=== PATIENT | male | born 1965 | race African-American/Black ===

== ENCOUNTER 2023-06-11 06:47 | Inpatient (IN) | payer BC ==
[~2023-06-11] VITALS: Ht 170.2 cm; Wt 57.8 kg
[~2023-06-11 06:47] MED LIST: CEFAZOLIN SOD 2 GM in D5W 50 ML IV ONE; VANCOMYCIN HCL 1,000 MG in NS 250 ML IV ONE
[2023-06-11 08:27] LABS: BASOPHILS % (AUTO) 0.1 % (0.0-2.0); EOSINOPHILS # (AUTO) 0.1 K/uL (0.0-0.4); EOSINOPHILS % (AUTO) 0.8 % (0.0-4.0); HEMATOCRIT 25.6 % (36-54); HEMOGLOBIN 7.9 g/dL (14.0-18.0); LYMPHOCYTES # (AUTO) 1.6 K/uL (1.0-5.5); LYMPHOCYTES % (AUTO) 14.9 % (20.5-51.5); MEAN CORPUSCULAR HEMOGLOBIN 22 pg (27-31); MEAN CORPUSCULAR HGB CONC 31 % (32-36); MEAN CORPUSCULAR VOLUME 71 fL (79.0-98.0); MONOCYTES # (AUTO) 1.1 K/uL (0.0-1.0); MONOCYTES % (AUTO) 10.5 % (1.7-9.3); NEUTROPHILS # (AUTO) 7.9 K/uL (1.8-7.7); NEUTROPHILS % (AUTO) 73.7 % (40.0-70.0); PLATELET COUNT (AUTO) 267 K/uL (130-430); RED BLOOD CELL COUNT(AUTO) 3.58 MIL/uL (4.2-6.2); RED CELL DISTRIBUTION WIDTH 21.2 % (9.0-15.0); WHITE BLOOD COUNT (AUTO) 10.7 K/uL (4.8-10.8)
[2023-06-11 11:22] VITALS: BP_SYST 158; PULSE 74; RESP 18; TEMP 97.7; O2SAT 99
== END 2023-06-11 10:55 | disposition home or self-care (01) | DRG 554 ==
LOC: SMU 06:47
PROVIDERS: ADMIT Orthopaedic Surgery Sports Medicine; ATTEND Orthopaedic Surgery Sports Medicine
DX: M19.011 Primary osteoarthritis, right shoulder (principal); E11.9 Type 2 diabetes mellitus without complications; J44.9 Chronic obstructive pulmonary disease, unspecified; I10 Essential (primary) hypertension; J45.909 Unspecified asthma, uncomplicated; E78.5 Hyperlipidemia, unspecified; Z79.899 Other long term (current) drug therapy
CPT/HCPCS: 36415; 82948; 85025; 86886; 86900; 86901; 87081; J0690; J3370; J7050; J7060

== ENCOUNTER 2023-11-28 10:15 | Outpatient (CLI) | payer BC | END 2023-11-28 14:25 | disposition home or self-care (01) | LOC: SLB 10:15 → EDSTATUS 12-03 10:15 | PROVIDERS: ATTEND Orthopaedic Surgery Sports Medicine | DX: M19.012 Primary osteoarthritis, left shoulder (principal) | CPT/HCPCS: 87081 ==

== ENCOUNTER 2024-02-11 10:31 | Day surgery (SDC) | payer BC ==
[~2024-02-11] VITALS: Ht 170.2 cm; Wt 61.7 kg
[2024-02-11] MEDS ORDERED: HYDROmorphone 1 MG/ML INJ. CARTRIDGE IVP PRN ×4 (11:00→17:00)
[2024-02-11] MEDS ORDERED: oxyCODONE HCL 5 MG TABLET PO PRN (11:00)
[2024-02-11] MEDS ORDERED: ACETAMINOPHEN 500 MG TABLET ONE (11:00)
[2024-02-11] MEDS ORDERED: traMADol HCL HCL 50 MG TABLET (ULTRAM) PO PRN (11:00)
[2024-02-11] MEDS ORDERED: CELECOXIB 100 MG CAPSULE ONE (11:00)
[2024-02-11] MEDS: ACETAMINOPHEN 500 MG TABLET PO ONE (11:45)
[2024-02-11] MEDS: CELECOXIB 100 MG CAPSULE PO ONE (11:45)
[2024-02-11] MEDS ORDERED: ONDANSETRON HCL 4 MG/2 ML VIAL IVP PRN ×2 (11:45→17:00)
[2024-02-11] MEDS ORDERED: CEFAZOLIN SOD 2 GM in D5W 50 ML IV ONE (12:00)
[2024-02-11 13:45] LABS: BASOPHILS % (AUTO) 0.2 % (0.0-2.0); EOSINOPHILS # (AUTO) 0.3 K/uL (0.0-0.4); EOSINOPHILS % (AUTO) 4.9 % (0.0-4.0); HEMATOCRIT 33.9 % (36-54); HEMOGLOBIN 11.2 g/dL (14.0-18.0); LYMPHOCYTES # (AUTO) 2.3 K/uL (1.0-5.5); LYMPHOCYTES % (AUTO) 33.6 % (20.5-51.5); MEAN CORPUSCULAR HEMOGLOBIN 31 pg (27-31); MEAN CORPUSCULAR HGB CONC 33 % (32-36); MEAN CORPUSCULAR VOLUME 93 fL (79.0-98.0); MONOCYTES # (AUTO) 0.7 K/uL (0.0-1.0); MONOCYTES % (AUTO) 10.1 % (1.7-9.3); NEUTROPHILS # (AUTO) 3.5 K/uL (1.8-7.7); NEUTROPHILS % (AUTO) 51.2 % (40.0-70.0); PLATELET COUNT (AUTO) 232 K/uL (130-430); RED BLOOD CELL COUNT(AUTO) 3.66 MIL/uL (4.2-6.2); RED CELL DISTRIBUTION WIDTH 13.6 % (9.0-15.0); WHITE BLOOD COUNT (AUTO) 6.8 K/uL (4.8-10.8)
[2024-02-11 13:58] LABS: PROTHROMBIN TIME 10.4 SECS (9.5-12.5)
[2024-02-11 13:59] LABS: ALBUMIN 3.2 g/dL (3.4-4.8); CREATININE 0.72 mg/dL (0.55-1.30); POTASSIUM 3.3 mmol/L (3.5-5.1); TOTAL BILIRUBIN 0.4 mg/dL (0.0-1.0); TOTAL PROTEIN, SERUM 5.6 g/dL (6.4-8.3)
[2024-02-11] MEDS: VANCOMYCIN HCL 1,000 MG in NS 250 ML IV ONE (14:20)
[2024-02-11] MEDS ORDERED: fentaNYL CITRATE/PF 100 MCG/2 ML AMP ONE (14:42)
[2024-02-11] MEDS ORDERED: MIDAZOLAM HCL 2 MG/2 ML VIAL (VERSED) ONE (14:42)
[2024-02-11] MEDS ORDERED: ACETAMINOPHEN I.V. 1000 MG 100 ML IV ONE (14:42)
[2024-02-11] MEDS ORDERED: HYDROmorphone 2 MG/ML VIAL ONE (14:43)
[2024-02-11] MEDS ORDERED: LR 1,000 ML IV.SOLN IV ONE (14:51)
[2024-02-11] MEDS ORDERED: NS IRRIG SOLN 1000 ML IR ONE (14:51)
[2024-02-11] MEDS ORDERED: VANCOMYCIN HCL 1000 MG/VIAL IV ONE (14:51)
[2024-02-11] MEDS ORDERED: PROPOFOL 200MG/ 20ML VIAL (DIPRIVAN) IV ONE (14:51)
[2024-02-11] MEDS ORDERED: LIDOCAINE 1% 10 MG/ML, 20 ML MDV ONE (14:51)
[2024-02-11] MEDS ORDERED: ONDANSETRON HCL 4 MG/2 ML VIAL ONE (14:51)
[2024-02-11] MEDS ORDERED: TRANEXAMIC ACID 1,000 MG/10 ML VIAL ONE (14:51)
[2024-02-11] MEDS ORDERED: BUPIVACAINE /EPINEPHRINE/PF 0.25% 30 ML VIAL ONE (14:51)
[2024-02-11] MEDS ORDERED: ROPIVACAINE HCL/PF 5 MG/ML 0.5% 30 ML VIAL ONE (14:51)
[2024-02-11] MEDS ORDERED: DEXAMETHASONE SOD PHOSPHATE 4 MG/ML VIAL ONE (14:51)
[2024-02-11] MEDS ORDERED: ROCURONIUM BROMIDE 10 MG/ML (ZEMURON) ONE (14:51)
[2024-02-11] MEDS ORDERED: SEVOFLURANE 15 MIN GAS INH ONE (14:51)
[2024-02-11] MEDS ORDERED: NS IRRIG SOLN 5000 ML IR ONE (14:51)
[2024-02-11] MEDS ORDERED: SUCR1TAB2 PO (15:20)
[2024-02-11] MEDS ORDERED: SPIR25TA PO (15:20)
[2024-02-11] MEDS ORDERED: FERR236T3 PO (15:20)
[2024-02-11] MEDS ORDERED: HYDR2TAB4 PO (15:20)
[2024-02-11] MEDS ORDERED: TAMS-11 PO (15:20)
[2024-02-11] MEDS ORDERED: ACET325C6 PO (15:20)
[2024-02-11] MEDS ORDERED: POTA-197 PO (15:20)
[2024-02-11] MEDS ORDERED: TIZA4CAP6 PO (15:20)
[2024-02-11] MEDS ORDERED: LOSA-413 PO (15:20)
[2024-02-11] MEDS ORDERED: FURO-150 PO (15:20)
[2024-02-11] MEDS ORDERED: PANT20TA2 PO (15:20)
[2024-02-11] MEDS ORDERED: FLUT100B INH (15:20)
[2024-02-11] MEDS ORDERED: BUME1TAB31 PO (15:20)
[2024-02-11] MEDS ORDERED: NOR10 PO (15:20)
[2024-02-11] MEDS ORDERED: ATOR-449 PO (15:20)
[2024-02-11] MEDS ORDERED: ALBMDI INH (15:20)
[2024-02-11] MEDS ORDERED: METF-1069 PO (15:20)
[2024-02-11] MEDS ORDERED: ONDA-8 PO (15:20)
[2024-02-11] MEDS ORDERED: hydrALAZINE HCL 20 MG/ML VIAL IV PRN (17:00)
[2024-02-11] MEDS ORDERED: NALOXONE HCL 0.4 MG/ML AMP (NARCAN) IVP PRN (17:00)
[2024-02-11] MEDS ORDERED: METOCLOPRAMIDE HCL 10 MG/2 ML VIAL IVP PRN (17:45)
[2024-02-11] MEDS ORDERED: ALBUTEROL MDI INHALATION 8 GM INH INH SCH (17:45)
[2024-02-11] MEDS ORDERED: ONDANSETRON 4 MG ODT TAB PO PRN (17:45)
[2024-02-11] MEDS ORDERED: DIPHENHYDRAMINE HCL 25 MG CAPSULE PO PRN (17:45)
[2024-02-11] MEDS: HYDROmorphone 1 MG/ML INJ. CARTRIDGE IVP PRN ×2 (18:30→21:19)
[2024-02-11] MEDS: LABETALOL HCL 20 MG/4 ML CARTRIDGE IVP ONE (18:36)
[2024-02-11] MEDS ORDERED: LABETALOL HCL 20 MG/4 ML CARTRIDGE IVP ONE (18:45)
[2024-02-11] MEDS: SENNOSIDES/DOCUSATE SODIUM 1 TAB TABLET(SENOKOT-S) PO SCH (21:00)
[2024-02-11] MEDS: ACETAMINOPHEN 500 MG TABLET PO SCH (21:20)
[2024-02-11 21:22] VITALS: BP_SYST 134; PULSE 99; RESP 18; TEMP 98.1
[2024-02-11] MEDS ORDERED: ALBUTEROL SULFATE 0.083% 2.5 MG/3 ML VIAL.NEB INH PRN (22:00)
[2024-02-11] MEDS ORDERED: ceFAZolin SODIUM 2 GM in D5W 50 ML IV SCH (22:00)
[2024-02-11 23:10] VITALS: BP_SYST 137; PULSE 88; RESP 18; TEMP 98.2; O2SAT 96
[2024-02-11 23:19] VITALS: BP_SYST 144; PULSE 92; O2SAT 99
[2024-02-12] MEDS: ceFAZolin SODIUM 2 GM in D5W 50 ML IV SCH (01:40)
[2024-02-12] MEDS: CEFAZOLIN 2 GM IVPB PREMIX 50 ML IV ONE (01:41)
[2024-02-12] MEDS: oxyCODONE HCL 5 MG TABLET PO PRN (03:48)
[2024-02-12 08:00] VITALS: BP_SYST 155; BP_SYST 162; PULSE 100; PULSE 84; RESP 16; RESP 18; TEMP 97.7; TEMP 98.2; O2SAT 96; O2SAT 99
[2024-02-12 08:19] LABS: HEMATOCRIT 33.7 % (36-54); HEMOGLOBIN 11.2 g/dL (14.0-18.0)
[2024-02-12] MEDS ORDERED: FLUTICASONE FUROATE 100 MCG BLST.W.DEV INH SCH (09:00)
[2024-02-12] MEDS: BUMETANIDE 1 MG TABLET PO SCH (09:15)
[2024-02-12] MEDS: FUROSEMIDE 20 MG TABLET PO SCH (09:16)
[2024-02-12] MEDS: TAMSULOSIN HCL 0.4 MG CAP PO SCH (09:17)
[2024-02-12] MEDS: SPIRONOLACTONE 25 MG TABLET (ALDACTONE) PO SCH (09:17)
[2024-02-12] MEDS: PANTOPRAZOLE SODIUM 40 MG TAB PO SCH (09:17)
[2024-02-12] MEDS: ATORVASTATIN 10 MG TABLET PO SCH (09:17)
[2024-02-12] MEDS: LOSARTAN POTASSIUM 50 MG TABLET (COZAAR) PO SCH (09:17)
[2024-02-12] MEDS: SUCRALFATE 1 GM TABLET PO SCH (09:18)
[2024-02-12] MEDS: amLODIPine BESYLATE 10 MG TABLET PO SCH (09:19)
[2024-02-12] MEDS: POTASSIUM CHLORIDE 20 MEQ TABLET.ER PO SCH (09:19)
[2024-02-12] MEDS: HYDROmorphone 1 MG/ML INJ. CARTRIDGE ONE (09:21)
[2024-02-12 10:15] VITALS: O2SAT 97
[2024-02-12] MEDS: BUDESONIDE 0.5 MG/2 ML AMPUL.NEB INH SCH (10:29)
[2024-02-12 12:52] VITALS: BP_SYST 155; PULSE 100; RESP 20; TEMP 98.2; O2SAT 96
[2024-02-12 13:07] VITALS: BP_SYST 155; PULSE 100; RESP 20; TEMP 98.2; O2SAT 96
== END 2024-02-12 13:30 | disposition home or self-care (01) ==
LOC: SMU 10:31 → SDS 10:31 → STU 19:19 → SMU 02-12 12:55 → SDS 02-12 13:30
PROVIDERS: ATTEND Orthopaedic Surgery Sports Medicine
DX: M19.012 Primary osteoarthritis, left shoulder (principal); M75.22 Bicipital tendinitis, left shoulder; M25.512 Pain in left shoulder; I11.0 Hypertensive heart disease with heart failure; I50.9 Heart failure, unspecified; E11.9 Type 2 diabetes mellitus without complications; K21.9 Gastro-esophageal reflux disease without esophagitis; J44.9 Chronic obstructive pulmonary disease, unspecified; G89.29 Other chronic pain; Z87.891 Personal history of nicotine dependence; Z98.890 Other specified postprocedural states; Z79.84 Long term (current) use of oral hypoglycemic drugs; Z79.899 Other long term (current) drug therapy
CPT/HCPCS: 87081; 64415; 23430; 23472; 80053; 85014; 85025; 85610; 85730; 36415; 94070; 82948; 83051; 88304; 88311; 94760; J3490 ×2; J0690 ×2; J1100; J2003; J2250; J2405; J2704; J3370; J3010; J1171 ×3; J7060 ×2; J7120; J7050; C1776 ×2; J0131; J7626; 76000; 94640